=== PATIENT | male | born 1950 ===

== ENCOUNTER → 2017-09-19 | Day surgery (SDC) | payer OTHER ==
[2017-09-14 14:40] VITALS: BMI 25.8
[~2017-09-19] MED LIST: Iodixanol 320 MG/ML 100 ML BOTTLE IV ONE; Midazolam 2 MG/2 ML VIAL ONE
[2017-09-19 19:56] VITALS: O2SAT 100
[2017-09-19 19:58] VITALS: BP 126/72; PULSE 78; RESP 80
[2017-09-19 20:00] VITALS: TEMP 97.5
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
== END | disposition home or self-care (01) ==
LOC: C.CATHLAB 12:52
PROVIDERS: ATTEND Specialist
DX: I25.10 Atherosclerotic heart disease of native coronary artery without angina pectoris (principal); R79.89 Other specified abnormal findings of blood chemistry; N18.6 End stage renal disease; Z59.0 Homelessness; Z91.19 Patient's noncompliance with other medical treatment and regimen
CPT/HCPCS: 93458; J1644; J2250; Q9967